=== PATIENT | female | born 1965 | race Caucasian/White ===

== ENCOUNTER 2017-01-16 10:24 | Emergency (ER) | payer MEDICAID, SELFPAY ==
[~2017-01-16 10:24] MED LIST: Iopamidol 370 76% 100 ML VIAL ONE
--- NOTE | 2017-01-16 11:29 | RAD ---
TWO VIEWS OF THE RIGHT TIBIA AND FIBULA: Comparison: None. History: Osteomyelitis, cellulitis to bilateral lower extremities. FINDINGS: Two views of the right tibia and fibula shows no evidence of acute fracture or dislocation. Diffuse severe soft tissue swelling is seen. Phleboliths are seen in the soft tissues, likely secondary to c hronic venostasis. There is moderate degenerative changes in the right knee. IMPRESSION: No evidence of acute osseous abnormality. POS: [facility]
[2017-01-16] MEDS ORDERED: Ondansetron HCl/PF 4 MG/2 ML Vial ONE (11:38)
[2017-01-16] MEDS ORDERED: Sodium Chloride 0.9% 1,000 ML ONE (11:38)
[2017-01-16] MEDS ORDERED: Ketorolac Tromethamine 30 MG/ML VIAL ONE (11:38)
[2017-01-16 11:54] LABS: Lactic Acid 1.6 mmol/L (0.5-2.2)
[2017-01-16 11:58] LABS: Troponin I 0.099 ng/mL (< 0.028)
[2017-01-16 12:00] LABS: Hemoglobin A1c 6.4 % (4.0-6.0)
[2017-01-16 12:01] LABS: ALT (SGPT) 13 U/L (8-55); AST (SGOT) 15 U/L (5-34); Albumin 3.1 g/dL (3.5-5.0); Alkaline Phosphatase 104 U/L (40-150); Anion Gap 13 mmol/L (10-20); BUN (Urea Nitrogen) 14 mg/dL (7.0-18.7); Bilirubin, Total 0.6 mg/dL (0.2-1.2); Calc. Creatinine Clearance 0 mL/min (70-130); Carbon Dioxide 31 mmol/L (22-29); Chloride 98 mmol/L (98-107); Estimated GFR-MDRD 87; Globulin 3.7 g/dL (2.4-3.5); Glucose 105 mg/dL (70-105); Protein, Total 6.8 g/dL (6.0-8.3); Sodium 138 mmol/L (136-145)
[2017-01-16] MEDS ORDERED: Clindamycin 300 MG/2 ML VIAL ONE (12:06)
[2017-01-16 12:07] LABS: Anisocytosis SLIGHT = 6-15 cells (100X) (0-5/hpf); Band 4 % (5-11); Lymphocytes 25 % (21-51); MDiff Complete? YES; Monocytes 5 % (0-10); Neutrophil 66 % (42-75); PLT Morphology Comment Appears Adequate
[2017-01-16] MEDS ORDERED: Clindamycin/D5W 900 mg/50 ml Premix Bag ONE (12:12)
[2017-01-16 12:15] LABS: Hemoglobin 12.9 g/dL (12.0-16.0); Mean Corpuscular HGB CONC 29.5 g/dL (32.0-36.0); Mean Corpuscular Hemoglobin 24.4 pg (27.0-31.0); Mean Corpuscular Volume 82.8 fl (81.0-99.0); Mean Platelet Volume 7.7 fL (7.4-10.4); Platelet Count 457 thou/uL (130-400); RBC Distribution Width 17.6 % (11.5-14.5); Red Blood Cell (RBC) Count 5.31 mill/uL (4.20-5.40); White Blood Cell (WBC) Count 20.9 thou/uL (4.8-10.8)
--- NOTE | 2017-01-16 12:48 | ULT ---
BILATERAL LOWER EXTREMITY VENOUS DUPLEX ULTRASOUND INCLUDING COLOR AND SPECTRAL DOPPLER IMAGING: HISTORY: A 51-year-old female with bilateral lower extremity edema, redness, cellulitis, and pain. FINDINGS: Exam performed from groin to ankle including visualized greater saphenous, common femoral, superfici al femoral, profunda femoral, popliteal, trifurcation, and posterior tibial vein regions. There is phasic flow with normal compressibility and normal augmentation at all levels. No intraluminal thro mbus. IMPRESSION: No evidence of deep venous thrombosis. POS: [facility]
[2017-01-16] MEDS ORDERED: Metoprolol Tartrate 5 MG/5 ML VIAL ONE ×2 (12:59→13:17)
[2017-01-16] MEDS ORDERED: Vancomycin HCl 500 MG VIAL ONE (13:35)
[2017-01-16] MEDS ORDERED: Sodium Chloride 0.9% 250 ML 250 ML ONE (13:37)
--- NOTE | 2017-01-16 14:27 | CT ---
CTA CHEST WITH CONTRAST: HISTORY: Elevated D-dimer and hypoxia. TECHNIQUE: Multiple contiguous axial images were obtained in a CTA of the chest with contrast, per pulmonary em bolism protocol, and 3D oblique MIP reformats and direct coronal reformats were performed. FINDINGS: The pulmonary arteries are well opacified without filling defects to suggest pulmonary emboli. The heart is normal in size without focal cardiac abnormality. No hilar or mediastinal lymphadenopathy is seen. No suspicious pulmonary nodules are seen. No focal infiltrates are seen in the lungs. At electasis versus scarring is seen. The visualized subdiaphragmatic structures are unremarkable. Th e chest wall soft tissues are unremarkable. IMPRESSION: No evidence of pulmonary thromboembolism. POS: [facility]
== END 2017-01-16 14:17 | disposition short-term general hospital (02) ==
LOC: NAV ERS 10:24
DX: L03.115 Cellulitis of right lower limb (principal); I11.0 Hypertensive heart disease with heart failure; I50.9 Heart failure, unspecified; R09.02 Hypoxemia; Z79.1 Long term (current) use of non-steroidal anti-inflammatories (NSAID); R79.89 Other specified abnormal findings of blood chemistry; F17.210 Nicotine dependence, cigarettes, uncomplicated; E11.9 Type 2 diabetes mellitus without complications; E78.5 Hyperlipidemia, unspecified; Z79.899 Other long term (current) drug therapy; Z79.891 Long term (current) use of opiate analgesic
CPT/HCPCS: 71270; 80053; 83036; 83605; 83880; 84484; 85025; 85379; 87040; 87070; 87077; 87205; 93005; 93970; 94760; 96361; 96365; 96367; 96375; J1885; J2270; J2405; J3370; J3490; J7050

== ENCOUNTER 2018-05-22 11:37 | Emergency (ER) | payer OTHER ==
[2018-05-22] MEDS ORDERED: Morphine 4 MG/ML VIAL ONE ×2 (12:09→12:49)
[2018-05-22] MEDS ORDERED: Sodium Chloride 0.9% 1,000 ML ONE (12:09)
[2018-05-22] MEDS ORDERED: Ondansetron PF 4 MG/2 ML Vial ONE (12:09)
[2018-05-22 12:22] LABS: #Basophils 0.1 thou/uL (0.0-0.2); #Eosinphils 0.1 thou/uL (0.0-0.7); #Lymphocytes 2.4 thou/uL (1.20-3.40); #Monocytes 0.6 thou/uL (0.11-0.59); #Neutrophils 8.1 thou/uL (1.40-6.50); %Basophils 0.6 % (0.0-1.0); %Eosinophils 0.7 % (0.0-10.0); %Lymphocytes 21.6 % (21.0-51.0); %Monocytes 5.5 % (0.0-10.0); %Neutrophils 71.6 % (42.0-75.0); Hemoglobin 16.2 g/dL (12.0-16.0); Mean Corpuscular HGB CONC 31.5 g/dL (32.0-36.0); Mean Corpuscular Hemoglobin 28.8 pg (27.0-31.0); Mean Corpuscular Volume 91.5 fL (78.0-98.0); Mean Platelet Volume 8.8 fL (7.4-10.4); Platelet Count 356 thou/uL (130-400); RBC Distribution Width 13.4 % (11.5-14.5); Red Blood Cell (RBC) Count 5.61 mill/uL (4.20-5.40); White Blood Cell (WBC) Count 11.3 thou/uL (4.8-10.8)
[2018-05-22 12:41] LABS: ALT (SGPT) 18 U/L (8-55); AST (SGOT) 14 U/L (5-34); Alkaline Phosphatase 130 U/L (40-150); Anion Gap 11 mmol/L (10-20); BUN (Urea Nitrogen) 10 mg/dL (7.0-18.7); Calc. Creatinine Clearance 0 mL/min (70-130); Calcium 10.3 mg/dL (7.8-10.44); Carbon Dioxide 27 mmol/L (22-29); Chloride 102 mmol/L (98-107); Estimated GFR-MDRD 86; Glucose 93 mg/dL (70-105); Potassium 4.1 mmol/L (3.5-5.1); Sodium 136 mmol/L (136-145)
[2018-05-22] MEDS ORDERED: Bacitracin Zinc 1 Packet ONE ×2 (13:38→13:48)
== END 2018-05-22 14:09 | disposition home or self-care (01) ==
LOC: NAV ERS 11:37
DX: T20.34XA Burn of third degree of nose (septum), initial encounter (principal); T20.12XA Burn of first degree of lip(s), initial encounter; T31.0 Burns involving less than 10% of body surface; J45.909 Unspecified asthma, uncomplicated; E66.9 Obesity, unspecified; I11.0 Hypertensive heart disease with heart failure; I50.9 Heart failure, unspecified; F17.210 Nicotine dependence, cigarettes, uncomplicated; E78.5 Hyperlipidemia, unspecified; Z79.891 Long term (current) use of opiate analgesic; Z79.899 Other long term (current) drug therapy; X02.8XXA Other exposure to controlled fire in building or structure, initial encounter
CPT/HCPCS: 16000; 80053; 85025; 93005; 96361; 96374; 96375; J1170; J2270; J2405; J7050